=== PATIENT | male | born 1980 | race Caucasian/White ===

== ENCOUNTER 2020-06-10 17:02 | Emergency (ER) | payer SELFPAY ==
[2020-06-10 17:07] VITALS: BP 123/73; PULSE 98; RESP 18; TEMP 36.3; O2SAT 95; BMI 22.2
--- NOTE | 2020-06-10 17:16 | US_ITS ---
WS: [id number] SCROTAL ULTRASOUND REASON FOR EXAM: testicle pain COMPARISON: None available. TECHNIQUE: Grayscale and duplex color Doppler ultrasound examination of the scrotum. FINDINGS: RIGHT: Right testes measures 3.7 cm x 2.4 cm x 1.8 cm. Normal blood flow. No focal lesion. Right epididymis measures 1.3 cm maximum dimension. No focal lesion. No significant free fluid in the right hemiscrotum. LEFT: Left testes measures 4.8 cm x 3.7 cm x 3.4 cm. The left testicle is enlarged and inhomogeneous in ech o character with markedly increased blood flow compared to the right testicle. Left epididymis measures 2.4 cm in maximum dimension. No focal lesion. Significantly increased blood flow. Moderate amount of free fluid in the left hemiscrotum. US/US scrotum [id number] IMPRESSION: Normal right testicle. Findings compatible with epididymoorchitis in the left hemiscrotum.
== END 2020-06-10 23:38 | disposition left against medical advice (07) ==
PROVIDERS: Emergency Provider Physician Assistant
DX: Z53.21 Procedure and treatment not carried out due to patient leaving prior to being seen by health care provider (principal)
CPT/HCPCS: 76870; 99281

== ENCOUNTER → 2023-09-15 11:14 | Outpatient (BNVA) | payer SELFPAY | PROVIDERS: Visit Provider Nurse Practitioner | DX: S89.91XA Unspecified injury of right lower leg, initial encounter (principal); X58.XXXA Exposure to other specified factors, initial encounter | CPT/HCPCS: 73562 ==